=== PATIENT | female | born 1985 | race Native Hawaiian/Other Pacific Islander ===

== ENCOUNTER 2018-07-28 08:22 | Emergency (ER) | payer BC ==
[~2018-07-28] VITALS: Ht 165.1 cm; Wt 77.1 kg
[2018-07-28 09:50] VITALS: BP 128/78; TEMP 98
== END 2018-07-28 09:50 | disposition home or self-care (01) ==
LOC: ED 08:22
DX: S92.425A Nondisplaced fracture of distal phalanx of left great toe, initial encounter for closed fracture (principal); W22.09XA Striking against other stationary object, initial encounter
CPT/HCPCS: 96372; 99283; J1885